=== PATIENT | female | born 1980 | race Caucasian/White ===

== ENCOUNTER 2016-11-22 06:16 | Inpatient (IN) | payer BC, OTHER ==
[~2016-11-22] VITALS: Ht 162.6 cm; Wt 75.4 kg
[~2016-11-22 06:16] MED LIST: BIOT300T2; CALC1TAB; DOCO200C7 PO; FOLI0.4T2 PO; MAGN400C PO
[2016-11-22] MEDS ORDERED: LR 1,000 ML IV PRN (06:25)
[2016-11-22] MEDS ORDERED: MAG-AL + SIM LIQUID 30 ML UDC PO PRN (06:30)
[2016-11-22] MEDS ORDERED: CALCIUM CARBONATE 500mg Chewable TAB PO PRN ×2 (06:30→12:30)
[2016-11-22] MEDS ORDERED: LIDOCAINE 1% (10mg/ml) 2ml SDV ID PRN (06:30)
[2016-11-22] MEDS ORDERED: ACETAMINOPHEN 500 MG TABLET PO PRN (06:30)
[2016-11-22] MEDS ORDERED: OXYTOCIN 30 UNIT in D5LR 500 ML SCH (06:30)
[2016-11-22 07:00] VITALS: TEMP 97.7
[2016-11-22] MEDS ORDERED: D5LR 1,000 ML IV PRN (07:00)
[2016-11-22 07:06] LABS: HCT - HEMATOCRIT 37.9 % (36-46); HGB - HEMOGLOBIN 13.3 GM/DL (12-16); MEAN CORPUSCULAR HGB 31.4 UUG (26-34); MEAN CORPUSCULAR HGB CONC(MCHC 35.1 GM/DL (31-37); MEAN CORPUSCULAR VOLUME 89.4 UM3 (80-100); RED BLOOD COUNT 4.24 M/MM3 (4.00-5.20); WBC - WHITE BLOOD COUNT 7.5 T/MM3 (4.5-11.0)
--- NOTE | 2016-11-22 09:44 | ANESOB ---
Epidural/ Date/Time DATE: 11/22/16 TIME: 924 Preop Diagnosis Procedure: Labor Epidural Plan: Epidural Height: 5 ' 4.00 " Weight: kg BMI: kg/m2 P:1 Medications & Allergies Inpatient Medications Current Medications Medications (Trade) Dose Ordered Sig/[place] Start Time Stop Time Status Last Admin Dose Admin Dextrose/Lactated Ringer's 1,000 ml @ 0 mls/hr Q0M PRN 11/22/16 07:00 11/22/16 07:16 0 MLS/HR Oxytocin/Dextrose/ Lactated Ringer's (Pitocin/D5lr) 503 ml @ 0 mls/hr Q0M 11/22/16 06:30 11/22/16 07:15 0 MLS/HR Lidocaine HCl 0.2 mg 0.2 mg PRN PRN 11/22/16 06:30 Lactated Ringer's (Lactated Ringers) 1,000 ml @ 0 mls/hr Q0M PRN 11/22/16 06:25 11/22/16 07:15 0 MLS/HR Acetaminophen (Tylenol Extra Strength) 1-2 TABS = 500-1,000 MG Q4H PRN 11/22/16 06:30 Al Hydroxide/Mg Hydroxide (Maalox) 30 ml Q4H PRN 11/22/16 06:30 Calcium Carbonate (TUMS Regular Strength) 1-2 TABS Q2H PRN 11/22/16 06:30 Biotin (Biotin) 300 Mcg Tablet, (Reported) Last Taken: on 11/22/16 0530 Calcium Carbonate/Vitamin D3 (Caltrate 600 + D Tablet) 1 Each Tablet, (Reported) Last Taken: on 11/22/16 0530 Docosahexanoic Acid ( Dha) 200 Mg Capsule, 1 CAP PO DAILY, (Reported) Last Taken: on 11/21/16 2200 Folic Acid (Folic Acid) 0.4 Mg Tablet, 1 TAB PO DAILY, (Reported) Last Taken: on 11/22/16 0530 Magnesium Oxide (Magnesium) 400 Mg Capsule, 400 MG PO DAILY, (Reported) Last Taken: on 11/22/16 0530 Coded Allergies: No Known Allergies (Unverified , 11/03/16) Medical/Surgical History Anesthesia PMH: Denies: *Diabetes, *Hypertension, Anesthesia Reactions, Asthma , Malignant Hyperthermia Smoking Status: Never smoker Does patient use chewing tobac: No Substance Use Type: does not use Anesthesia Adverse Reactions: FOUND none Family Hx of Anesthesia Advers: none Hx of Motion Sickness: No Complications During : No Pertinent Findings Laboratory Tests 11/22/16 06:47 Physical Exam Respiratory: Lungs clear Cardiovascular: Regular rate, rhythm Airway Assessment Mallampati Score: II TMD: 3 Fingerbreadths Neck Extension: Good Overall Assessment: May Be Diff Mask Vent., May Be Diff Intubation ASA: 2 Discussion Discussed risks/options/alternatives of anesthesia. Patient consents. Nursing pain assessment noted. Present for Discussion: Present: Spouse Attestation Statement Prior to the delivery of any anesthetic medication, I examined the patient, developed the plan, obtained the patient's consent and discussed the risk and benefits of the procedure with the patient/guardian. If the note happens to be signed after anesthesia start time, it is only due to providing efficient care of the patient and documenting at a time when the computer is available. LYNDA BURK CRNA November 22, 2016 09:44
[2016-11-22] MEDS ORDERED: ROPIVACAINE 1% 200 MG, SUFENTANIL 50 MCG in NORMAL SALINE 80 ML EPI PRN (11:45)
[2016-11-22] MEDS ORDERED: ONDANSETRON 4mg/2ml INJECTION IV PRN (11:45)
[2016-11-22] MEDS ORDERED: DiphenhydrAMINE 50 MG/ML INJECTION IV PRN (11:45)
[2016-11-22] MEDS ORDERED: NALOXONE 0.4mg/ml INJECTION IV PRN (11:45)
[2016-11-22] MEDS ORDERED: OXYTOCIN 30 UNIT in D5W 500 ML IV ONE (12:19)
[2016-11-22] MEDS ORDERED: MILK OF MAGNESIA 30 ML SUSP PO PRN (12:30)
[2016-11-22] MEDS ORDERED: PHENYLEPHRINE RECTAL SUPPOSITORY RECTALLY PRN (12:30)
[2016-11-22] MEDS ORDERED: HYDROCORTISONE 2.5% CREAM 30 GM RECTALLY PRN (12:30)
[2016-11-22] MEDS ORDERED: HYDROCODONE/APAP 5 mg/325 mg TABLET PO PRN (12:30)
--- NOTE | 2016-11-22 14:55 | LDNF ---
DATE 11/22/2016 Emerald is a 36-year-old 2, para 1 at 39 weeks 1 day gestational age who was brought in this morning for a Pitocin induction due to a previous difficult forceps delivery. I was unable to rupture her membranes because her cervix was closed and felt like it had some scar tissue in it. I attempted twice to break up the scar tissue. Her membranes then ruptured spontaneously and she received an epidural. In two hours, she went from closed to complete and pushing. When I arrived in the room, I was only able to get gloves on before the head delivered. There were still membranes surrounding the head and these were removed with a clamp. The nose and mouth were suctioned. Baby was vigorous at delivery so she was placed on mom's abdomen. The cord clamping was delayed for more than two minutes. She had a spontaneous vaginal delivery of a viable female infant, Apgars 9/9, weight 3360 grams name "Christy". The placenta took over 10 minutes to deliver. Her uterus then contracted down well. Mom and baby tolerated the delivery well. SIDNEY
--- NOTE | 2016-11-22 15:00 | NUR ---
Care Assumed Report from Richard Samuel RN. Care assumed.
--- NOTE | 2016-11-22 15:15 | NUR ---
Assessment VSS and assessment WNL. Pt was up to BR around 1430, and reports bleeding was "normal." Discussed signs and symptoms to report to nurse. Up around room doing self and cares. Denies pain at this time. Discussed POC with pt, verbalizes understanding. Encouraged to call PRN.
[2016-11-22 16:15] VITALS: BP 131/80; PULSE 74; RESP 18; TEMP 98.2
--- NOTE | 2016-11-22 18:51 | ANESPO ---
Post-Op Note Date 11/22/16 Time: 18:45 Status Pt Participated in Evaluation: Pt participated in person Vital Signs Date Time Temp Pulse Resp B/P Pulse Ox O2 Delivery O2 Flow Rate FiO2 11/22/16 16:15 98.2 74 18 131/80 Room Air Respiratory Function: Airway patent Cardiovascular Function: Regular pulse Mental Status: Alert/oriented Pain Level Intensity: 0 Hydration: Taking po fluids Complications during Recovery None apparent Follow-Up Instructions Instructions Per Surgeon LYNDA BURK CRNA November 22, 2016 18:51
[2016-11-22 21:00] VITALS: BP_SYST 118; BP_SYST 122; BP_DIAS 67; BP_DIAS 70; PULSE 60; PULSE 80; RESP 18; TEMP 97.4; O2SAT 99
--- NOTE | 2016-11-22 21:00 | NUR ---
Status Pt has been up around room. Walked to cafeteria and has been up around room doing own and self cares this evening. Motrin given for lower back pain of 5/10. Pt reports bleeding has been small to scant. Getting ready for bed at this time. Encouraged to call PRN. Denies further needs.
[2016-11-22] MEDS: IBUPROFEN 800 MG TABLET PO PRN (21:34)
--- NOTE | 2016-11-23 02:22 | NUR ---
Status RN in room for cares. Pt woke to feed . Denies pain. Reports that she has been able to sleep well. Denies needs at this time.
--- NOTE | 2016-11-23 02:23 | NUR ---
Chart Check 24 hour chart check completed
--- NOTE | 2016-11-23 03:00 | NUR ---
REPORT FROM KEVIN WILSON RN, CARE ASSUMED.
[2016-11-23 06:00] VITALS: BP 125/68; PULSE 65; RESP 16; TEMP 97.7; O2SAT 98
--- NOTE | 2016-11-23 08:02 | PNPDOC ---
Progress Note PPD1 Rubella: Immune GBS: Neg Blood Type:A pos Subjective 11/23/16 Lochia: Minimal Pain: Controlled Voiding: Voiding Objective Vital Signs Date Time Temp Pulse Resp B/P Pulse Ox O2 Delivery O2 Flow Rate FiO2 11/22/16 21:00 97.4 60 18 122/67 99 Room Air Urine Output: Good General: Alert and Oriented Abdomen: Fundus Firm, Non-tender Extremities: Non-tender Assessment (1) (spontaneous vaginal delivery) Plan: Routine Care, Discharge Home, Continue PNV BRITTON IRBY MD November 23, 2016 08:02
[2016-11-23] MEDS ORDERED: HYDR-4246 PO (08:03)
[2016-11-23] MEDS ORDERED: IBUP-1547 PO (08:03)
[2016-11-23] MEDS ORDERED: DOCUSATE CALCIUM 240 MG CAPSULE PO SCH (09:00)
[2016-11-23] MEDS: IBUPROFEN 800 MG TABLET PO PRN (11:06)
== END 2016-11-23 13:35 | disposition home or self-care (01) | DRG 775 ==
LOC: MC 06:16
PROVIDERS: ADMIT Obstetrics & Gynecology; ATTEND Obstetrics & Gynecology
PROC: 10E0XZZ Delivery of Products of Conception, External Approach (ICD-10-PCS; principal; 2016-11-22)
PROC: 3E033VJ Introduction of Other Hormone into Peripheral Vein, Percutaneous Approach (ICD-10-PCS; 2016-11-22)
PROC: 0U7C7ZZ Dilation of Cervix, Via Natural or Artificial Opening (ICD-10-PCS; 2016-11-22)
DX: O34.43 Maternal care for other abnormalities of cervix, third trimester (principal); N88.1 Old laceration of cervix uteri; Z3A.39 39 weeks gestation of pregnancy; Z37.0 Single live birth
CPT/HCPCS: 36415; 85027; 86850; 86900; 86901